=== PATIENT | male | born 2005 | race Caucasian/White ===

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

== ENCOUNTER 2024-07-13 00:08 | Emergency (ER) | payer OTHER ==
[~2024-07-13] VITALS: Ht 167.6 cm; Wt 70.6 kg
[~2024-07-13 00:08] MED LIST changes: +COLA100C5 PO; +LORA-1041 PO; -LORA-674 PO; +METH60CA PO; -METH60CA2 PO; +RISP-105 PO; -RISP-8 PO
[2024-07-13 01:29] LABS: BASO % 0.4 % (0.0-1.0); EOS # 0.1 10^3/uL (0.0-0.5); EOS % 0.5 % (0.0-3.0); HEMATOCRIT 42.9 % (42.0-52.0); HEMOGLOBIN 14.4 g/dl (13.5-17.5); LYMPH % 32.1 % (24.0-44.0); MEAN CORPUSCULAR HEMOGLOBIN 29.2 pg (27.0-33.0); MEAN CORPUSCULAR HGB CONC 33.6 g/dl (32.0-36.5); MONO # 0.8 10^3/uL (0.0-0.8); MONO % 8.7 % (2.0-8.0); NEUTROPHILS # 5.4 10^3/uL (1.5-8.5); NEUTROPHILS % 57.9 % (36.0-66.0); PLATELET COUNT, AUTOMATED 304 10^3/uL (150-450); RED BLOOD COUNT 4.93 10^6/uL (4.30-6.10); WHITE BLOOD COUNT 9.4 10^3/uL (4.0-10.0)
[2024-07-13 01:46] LABS: LIPASE 30 U/L (12-53)
[2024-07-13 01:47] LABS: ALBUMIN 4.5 G/DL (3.2-5.2); ALKALINE PHOSPHATASE 87 U/L (40-129); ALT/SGPT 25 U/L (7.0-40); AST/SGOT 12 U/L (<34); BILIRUBIN,DIRECT < 0.1 MG/DL (<0.4); BILIRUBIN,TOTAL 0.2 MG/DL (0.3-1.2); BLOOD UREA NITROGEN 13 MG/DL (9-23); CALCIUM LEVEL 9.7 MG/DL (8.5-10.1); CARBON DIOXIDE LEVEL 28 MMOL/L (20-31); CHLORIDE LEVEL 105 MMOL/L (98-107); CREATININE FOR GFR 0.79 MG/DL (0.70-1.30); GLOMERULAR FILTRATION RATE > 90.0 (>60); GLUCOSE, FASTING 103 MG/DL (60-100); POTASSIUM SERUM 4.1 MMOL/L (3.5-5.1); SODIUM LEVEL 142 MMOL/L (136-145); TOTAL PROTEIN 7.4 G/DL (5.7-8.2)
[2024-07-13] MEDS ORDERED: ISOVUE-370 76% 100ML VIAL As Ordered ONE (01:55)
[2024-07-13] MEDS ORDERED: ONDA-282 PO (02:15)
[2024-07-13] MEDS ORDERED: PEPC1TAB5 PO (02:15)
[2024-07-13] MEDS ORDERED: CARA1TAB6 PO (02:15)
[2024-07-13 02:55] LABS: KETONE, URINE AUTO RFX NEGATIVE (NEGATIVE); LEUKOCYTE ESTERASE UR AUTO RFX NEGATIVE (NEGATIVE); MUCUS, URINE RFX SMALL (NEGATIVE); NITRITE, URINE AUTO RFX NEGATIVE (NEGATIVE); RBC, URINE AUTO RFX 1 /HPF (0-3); SQUAM EPITHELIAL CELL UR AURFX 0 /HPF (0-6); WBC, URINE AUTO RFX 0 /HPF (0-3)
[2024-07-13 03:36] VITALS: BP 131/92; TEMP 97.8; O2SAT 97
== END 2024-07-13 03:40 | disposition home or self-care (01) ==
LOC: M ED 00:08
DX: R10.9 Unspecified abdominal pain (principal); Z79.899 Other long term (current) drug therapy
CPT/HCPCS: 36415; 74177; 80048; 80076; 81001; 83605; 83690; 85025; 87880; 93041; 99284; Q9967

== ENCOUNTER 2024-07-22 17:13 | Emergency (ER) | payer OTHER ==
[~2024-07-22] VITALS: Ht 167.6 cm; Wt 63.7 kg
[~2024-07-22 17:13] MED LIST changes: +CARA1TAB6 PO; +ONDA-282 PO; +PEPC1TAB5 PO
[2024-07-22 17:28] VITALS: TEMP 98.3
[2024-07-22 18:05] LABS: BASO % 0.3 % (0.0-1.0); EOS % 0.2 % (0.0-3.0); HEMATOCRIT 41.7 % (42.0-52.0); HEMOGLOBIN 13.8 g/dl (13.5-17.5); LYMPH # 1.8 10^3/uL (1.5-5.0); LYMPH % 14.7 % (24.0-44.0); MEAN CORPUSCULAR HEMOGLOBIN 28.7 pg (27.0-33.0); MEAN CORPUSCULAR HGB CONC 33.1 g/dl (32.0-36.5); MEAN CORPUSCULAR VOLUME 86.7 fl (80.0-96.0); MONO # 0.8 10^3/uL (0.0-0.8); MONO % 6.3 % (2.0-8.0); NEUTROPHILS # 9.5 10^3/uL (1.5-8.5); NEUTROPHILS % 77.8 % (36.0-66.0); PLATELET COUNT, AUTOMATED 273 10^3/uL (150-450); RED BLOOD COUNT 4.81 10^6/uL (4.30-6.10); WHITE BLOOD COUNT 12.2 10^3/uL (4.0-10.0)
[2024-07-22 18:26] LABS: BLOOD UREA NITROGEN 12 MG/DL (9-23); CALCIUM LEVEL 9.5 MG/DL (8.5-10.1); CARBON DIOXIDE LEVEL 28 MMOL/L (20-31); CHLORIDE LEVEL 105 MMOL/L (98-107); CREATININE FOR GFR 0.71 MG/DL (0.70-1.30); GLOMERULAR FILTRATION RATE > 90.0 (>60); GLUCOSE, FASTING 94 MG/DL (60-100); SODIUM LEVEL 143 MMOL/L (136-145)
[2024-07-22] MEDS: NS 500 ML IV ONE (18:35)
[2024-07-22 19:15] VITALS: BP 124/74; O2SAT 99
== END 2024-07-22 21:08 | disposition home or self-care (01) ==
LOC: M ED 17:13 → EDBD 17:13 → M ED 21:08
DX: R42 Dizziness and giddiness (principal); F84.0 Autistic disorder; Z79.899 Other long term (current) drug therapy

== ENCOUNTER → 2024-10-23 | Outpatient (CLI) | payer OTHER | LOC: M EKG 14:08 | PROVIDERS: ATTEND Internal Medicine Cardiovascular Disease | DX: I48.91 Unspecified atrial fibrillation (principal) ==

== ENCOUNTER → 2024-11-03 | Outpatient (CLI) | payer OTHER | LOC: M CARPUL 13:32 | PROVIDERS: ATTEND Internal Medicine Cardiovascular Disease | DX: R00.2 Palpitations (principal) ==

== ENCOUNTER 2024-12-29 22:41 | Emergency (ER) | payer OTHER ==
[~2024-12-29] VITALS: Ht 167.6 cm; Wt 72.7 kg
[2024-12-29 22:43] VITALS: BP 151/87; TEMP 98.1; O2SAT 98
== END 2024-12-30 00:48 | disposition left against medical advice (07) ==
LOC: M ED 22:41
DX: Z53.21 Procedure and treatment not carried out due to patient leaving prior to being seen by health care provider (principal)

== ENCOUNTER → 2024-12-31 | Outpatient (CLI) | payer OTHER | LOC: M RAD 15:42 | PROVIDERS: ATTEND Nurse Practitioner Family | DX: M54.40 Lumbago with sciatica, unspecified side (principal) ==

== ENCOUNTER → 2025-02-08 | Outpatient (CLI) | payer OTHER | LOC: M CARPUL 13:50 | PROVIDERS: ATTEND Internal Medicine Cardiovascular Disease | DX: R00.2 Palpitations (principal); R07.9 Chest pain, unspecified ==

== ENCOUNTER 2025-02-13 17:51 | Emergency (ER) | payer OTHER ==
[~2025-02-13] VITALS: Ht 165.1 cm; Wt 89.1 kg
[2025-02-14] VITALS: O2SAT 98
[2025-02-14] MEDS ORDERED: BENZ1LOZ9 PO (00:14)
[2025-02-14 00:18] VITALS: BP 149/81; TEMP 97.7
== END 2025-02-14 00:20 | disposition home or self-care (01) ==
LOC: M ED 17:51
DX: R04.2 Hemoptysis (principal); F17.200 Nicotine dependence, unspecified, uncomplicated; Z79.899 Other long term (current) drug therapy